=== PATIENT | female | born 1980 | race Hispanic/Latino ===

== ENCOUNTER → 2022-08-24 | Outpatient (CLI) | payer BC | END | disposition home or self-care (01) | LOC: SLP 20:16 | PROVIDERS: ATTEND Internal Medicine | DX: G47.33 Obstructive sleep apnea (adult) (pediatric) (principal); R06.83 Snoring | CPT/HCPCS: 95810 ==

== ENCOUNTER → 2022-10-25 | Outpatient (CLI) | payer BC | END | disposition home or self-care (01) | LOC: SLP 20:15 | PROVIDERS: ATTEND Internal Medicine | DX: G47.33 Obstructive sleep apnea (adult) (pediatric) (principal); R06.83 Snoring; E11.9 Type 2 diabetes mellitus without complications | CPT/HCPCS: 95811 ==